=== PATIENT | male | born 1980 | race Caucasian/White ===

== ENCOUNTER 2016-08-31 06:14 | Day surgery (SDC) | payer OTHER ==
[~2016-08-31] VITALS: Ht 188 cm; Wt 118.1 kg
--- NOTE | 2016-09-05 08:36 | OR ---
ADMIT: 08/31/2016 RM/LOC: [facility] MR#: [id number] [id number] [address] [place] [address] Operative/Delivery Room Report SEX: M AGE: 36 : 1980 SURGERY DATE: 08/31/2016 SURGEON: Eric Wade MD PREOPERATIVE DIAGNOSES: 1. Right inguinal hernia. 2. Umbilical hernia. POSTOPERATIVE DIAGNOSES: 1. Right inguinal hernia. 2. Umbilical hernia. PROCEDURE: 1. Laparoscopic transabdominal preperitoneal repair of right inguinal hernia with Bard 3DMax large mesh. 2. Open umbilical hernia repair with 4.3 cm Ventralex mesh. BULLET LUBRICATING MACHINE OPERATOR: IAN Good, whose assistance was necessary for laparoscopic visualization and tissue retraction and for tissue retraction at the umbilical site. ANESTHESIA: General endotracheal. ESTIMATED BLOOD LOSS: 10 mL. DESCRIPTION OF PROCEDURE: The patient was taken to the operating room and placed supine on the operating room table. General anesthesia was established. The abdomen was prepped and draped in the standard surgical fashion. A 5 mm infraumbilical incision was made in the skin. The fascia was grasped with Anoop clamp, and a Veress needle was advanced into the peritoneal cavity. Carbon dioxide was used to insufflate the abdomen to 15 mmHg pressure. The Veress needle was withdrawn, and a 5 mm Optiview trocar was placed. Next, a 5 mm right lateral port and a 12 mm left lower quadrant port were placed under visualization. Inspection of the groins revealed no left inguinal hernia. The peritoneum overlying the right inguinal hernia was incised sharply. Superior and inferior peritoneal flaps were created with dissection of the preperitoneal space. This proceeded medially to the pubic tubercle and Demarcus's ligament. The preperitoneal fat was cleaned from the fascial defect exposing the indirect hernia. Once the space was widely enough created, a Bard 3DMax large right mesh was placed in the preperitoneal position. This was secured to Demarcus's ligament and the anterolateral abdominal wall musculature with the Endo [place] 4.0 stapler. This provided good overlap of the defect. The peritoneal flaps were then closed overlying the mesh with the Endo [place] 4.8 stapler. The ports were removed under visualization without evidence of bleeding. The 12 mm port site in fascial margin was closed with the suture passer and an 0 Vicryl tie. The abdomen was allowed to deflate. Next, a curvilinear infraumbilical incision was extended from the 5 mm port site. Dissection proceeded through the subcutaneous tissue to the hernia sac. The umbilical skin was carefully dissected away from the ADMIT: 08/31/2016 RM/LOC: [facility] MR#: [id number] [address] [place] [id number] EVIE DALE [address] [place] [address] Operative/Delivery Room Report SEX: M AGE: 36 : 1980 sac. The sac was then dissected to the fascial margins and excised and sent as specimen. The defect measured just under 1 cm in diameter. 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 A 4.3 cm Ventralex mesh was placed intra-abdominally for overlap of the defect. This was secured circumferentially in a transfascial manner with 0 silk suture. An 0 silk was then also used to primarily approximate the fascial margins overlying the mesh. The umbilical skin was tacked to the repair site with 2-0 Vicryl suture. Deep tissue was closed with 2-0 Vicryl suture. Skin edges were approximated with 4-0 Monocryl in a subcuticular fashion and Dermabond. Local anesthetic was injected. Sponge, needle, and instrument counts were correct at the end of the case. The patient tolerated the procedure well and transferred to the recovery area in stable condition. Eric Wade MD/ selina JOB #: [id number] CC: Eric Wade, Attending Physician Saurav Bennett, Family Physician
== END 2016-08-31 11:16 | disposition home or self-care (01) ==
LOC: SSS 06:14
PROC: 0WUF0JZ Supplement Abdominal Wall with Synthetic Substitute, Open Approach (ICD-10-PCS; principal; 2016-08-31)
PROC: 0YU54JZ Supplement Right Inguinal Region with Synthetic Substitute, Percutaneous Endoscopic Approach (ICD-10-PCS; principal; 2016-08-31)
DX: K40.90 Unilateral inguinal hernia, without obstruction or gangrene, not specified as recurrent (principal); K42.9 Umbilical hernia without obstruction or gangrene; F17.210 Nicotine dependence, cigarettes, uncomplicated; Z79.899 Other long term (current) drug therapy